=== PATIENT | male | born 1960 | race Caucasian/White ===

== ENCOUNTER → 2024-03-23 13:54 | Outpatient (BNVA) | payer MEDICAID, SELFPAY | PROVIDERS: PCP Family Medicine; Referring Provider Family Medicine; Visit Provider Student in an Organized Health Care Education/Training Program | DX: K46.9 Unspecified abdominal hernia without obstruction or gangrene (principal); K40.90 Unilateral inguinal hernia, without obstruction or gangrene, not specified as recurrent | CPT/HCPCS: 99204 ==

== ENCOUNTER → 2024-05-11 15:05 | Outpatient (BNVA) | payer MEDICARE, MEDICAID, SELFPAY | PROVIDERS: PCP Family Medicine; Visit Provider Specialist | DX: M25.512 Pain in left shoulder; G89.29 Other chronic pain; S46.002A Unspecified injury of muscle(s) and tendon(s) of the rotator cuff of left shoulder, initial encounter; V86.09XA Driver of other special all-terrain or other off-road motor vehicle injured in traffic accident, initial encounter; M54.6 Pain in thoracic spine | CPT/HCPCS: 73030; 99204 ==

== ENCOUNTER 2024-05-19 12:30 | Outpatient (CLI) | payer MEDICARE, MEDICAID, SELFPAY ==
--- NOTE | 2024-05-19 12:37 | MR_ITS ---
WS: [id number] MRI LEFT SHOULDER HISTORY: left shoulder pain COMPARISON: Radiograph 05/11/2024 TECHNIQUE: Multiplanar sequences of the shoulder joint are submitted. Micrometallic artifacts in the soft tissues surrounding the shoulder from prior surgery. Resection of the distal clavicle. No subacromial or subdeltoid bursal fluid. Normal position of the biceps tendon . No os acromion. Mild thickening with heterogeneous intermediate signal in the distal supraspinatus tendon. Fraying al jojo the bursal and articular surfaces of the tendon but no definite tear. There is no fluid gap. No m uscle atrophy or edema. Increased linear signal in the posterior labrum the remaining labral contains intermediate signal wit h intrasubstance degeneration but no additional tear MR/MR shoulder LT wo con* [id number] IMPRESSION: 1. Status post resection distal LEFT clavicle. 2. Surface fraying involving the distal supraspinatus tendon. Fraying involves both the superior and inferior articular surfaces. No tear identified. 3. Focal increased signal in the posterior labrum consistent with a short tear . The remaining labrum contains intrasubstance degeneration but no additional t ear.
== END 2024-05-19 12:31 | disposition home or self-care (01) ==
PROVIDERS: PCP Family Medicine; Visit Provider Specialist
DX: S46.002S Unspecified injury of muscle(s) and tendon(s) of the rotator cuff of left shoulder, sequela (principal); M25.512 Pain in left shoulder; G89.29 Other chronic pain; Z98.890 Other specified postprocedural states; R93.6 Abnormal findings on diagnostic imaging of limbs; Z18.10 Retained metal fragments, unspecified; X58.XXXS Exposure to other specified factors, sequela
CPT/HCPCS: 73221

== ENCOUNTER 2024-05-20 07:09 | Day surgery (SDC) | payer MEDICARE, MEDICAID, SELFPAY ==
[2024-05-20] VITALS (9 sets, daily range): BP systolic 92–149; BP diastolic 54–88; PULSE 72–94; RESP 16–18; TEMP 36.1–36.4; O2SAT 93–99
[2024-05-20] MEDS: sodium chloride 0.9% 1,000 ML 30 ML IV (07:33)
--- NOTE | 2024-05-20 07:40 | W.PM.OPSFHP ---
Same Day Surgery H&P Indication for Procedure/HPI DATE OF PROCEDURE: May 20, 2024 CHIEF COMPLAINT/INDICATIONFOR SURGICAL PROCEDURE: symptomatic right inguinal hernia PREOP DIAGNOSIS: right inguinal hernia PLANNED PROCEDURE: Operation Date: 05/20/24 08:20 Proposed Procedures p Open Inguinal Hernia Repair w/ Mesh - 97348, K40.90(Right) - Fermin Gross MD Medications/Allergies* Allergies/Adverse Reactions Allergy/AdvReac Type Severity Reaction Status Date / Time flu vaccine Allergy Mild Unknown Uncoded 05/11/24 15:25 Current Medications: Generic Name Dose Route Start Last Admin Trade Name Freq PRN Reason Stop Dose Admin Sodium Chloride 1,000 mls @ 30 mls/hr 05/20/24 07:15 05/20/24 07:33 Sodium Chloride 0.9% IV 05/21/24 07:14 30 mls/hr .Q24H MIRTHA Administration Pertinent History/Comorbid Conditions* Family History (Updated 03/23/24 @ 14:05 by KILEY Monge) Breast cancer Mother Cancer Father prostate cancer Social History Smoking and tobacco/nicotine status: current every day tobacco/nicotine user Pertinent Exam Findings alert, oriented x 3, clear to auscultation bilaterally, regular rate & rhythm, operative site marked and procedure specific exam findings Abdomen soft, nt, nd. Right inguinal hernia reducible. Recommendations Surgery/Procedure today Other Plans: Proceed with right inguinal hernia repair. Coding Level of Care Code Acute Code for Chg Fwd
--- NOTE | 2024-05-20 07:45 | ANES.PREANE2 ---
Pre-Anesthetic Assessment Height/Weight: Height 1.75 m Weight 65.317 kg Temp Pulse Resp BP Pulse Ox O2 Del Method 97 F L 93 18 149/88 98 Room Air 05/20/24 07:18 05/20/24 07:18 05/20/24 07:18 05/20/24 07:18 05/20/24 07:18 05/20/24 07:18 Preop Diagnosis: right inguinal hernia Operation Date: 05/20/24 08:20 Proposed Procedures p Open Inguinal Hernia Repair w/ Mesh - 32475, K40.90(Right) - Fermin Gross MD Familial anesthetic complications: none Was Beta Tracy taken within 24 hours: N/A Was Clonidine taken within 24 hours: N/A Last intake: Intake Last Liquid Date 05/19/24 Last Liquid Time 23:30 Last Solid Date 05/19/24 Last Solid Time 23:30 Social 55 pack years Exam alert, oriented x 3 and clear to auscultation bilaterally Airway Mallampati: Class II Dentition: other (one upper tooth is present and broken, pt states it is not loose ) History/ROS No significant history except as noted Pulmonary None reported CV/HEM None reported None reported Hepatic None reported GI None reported Metabolic None reported Musc/skel None reported Neuropsych None reported Anesthetic Plan ASA status: 2 Anesthesia: Anesthesia Evaluation and General Risk of > 500 ml blood loss (7ml/kg in children): Yes, adequate IV access and fluids planned Medications/Allergies Home Medications Medication Instructions Recorded Confirmed Last Taken Type tizanidine 4 mg tablet 4 mg PO BID PRN muscle spasticity 04/13/24 05/20/24 05/05/24 Rx #60 tabs Allergies Allergy/AdvReac Type Severity Reaction Status Date / Time flu vaccine Allergy Mild Unknown Uncoded 05/11/24 15:25 Current Medications Generic Name Dose Route Start Last Admin Trade Name Freq PRN Reason Stop Dose Admin Sodium Chloride 1,000 mls @ 30 mls/hr 05/20/24 07:15 05/20/24 07:33 Sodium Chloride 0.9% IV 05/21/24 07:14 30 mls/hr .Q24H MIRTHA Administration PFSH Anesthesia Family History Mother Breast cancer Father Cancer prostate cancer Social History Smoking and tobacco/nicotine status: current every day tobacco/nicotine user Data Anesthesia Cardiac Studies: No Data to Display
[2024-05-20] MEDS: ceFAZolin 2,000 mg SDV 2000 MG IVP (07:54)
[2024-05-20] MEDS: BUPivacaine 0.25% INJ 10 mL INJECTION (08:36)
[2024-05-20] MEDS: lidocaine-epi 1% 20 mL INJ INJECTION (08:36)
--- NOTE | 2024-05-20 09:14 | PM.OP ---
Operative Report Date of procedure: May 20, 2024 Pre-op diagnosis: symptomatic right inguinal hernia Post-op diagnosis: same Post-op findings: Indirect and direct right inguinal hernia Procedure done: Right inguinal hernia repair with mesh (plug and patch medium size) Implants: Plug and patch mesh medium size Specimens removed/disposition: Cord lipoma Pathology: Cord lipoma Surgeon: Fermin Gross MD [employer]: [id number] Anesthesia: General Estimated blood loss (mL): 5 Complications: NA Findings: Direct and indirect right inguinal hernia. Repaired using plug and patch (medium) Condition: stable Disposition: same day Brief History: 64-year-old male who presented with a symptomatic right inguinal hernia. Discussed risk and benefits of right inguinal hernia repair using mesh and patient agreed to proceed. Procedure: Patient brought to the OR and placed supine on the table. SCDs were placed and functioning. Preoperative ancef was administered. General anesthesia was induced. A ferreira catheter was placed without any complications. The right groin was prepped and draped in the usual sterile fashion. Local infiltration at the surgical site was done using lidocaine/bupivacaine with epinephrine. A 6cm incision was carried out over the right inguinal canal. Tissue dissection was carried down to the external oblique fascia using electrocautery. The fascia was incised and the cord structures were identified. Cord structures were dissected of the hernia sac. I identified a small indirect as well as a direct inguinal hernia. The hernia sacs were dissected and reduced into the abdomen. The plug was placed at the site of the deep inguinal ring and the posterior wall of the inguinal canal was reinforced using a mesh patch. The plug was fixed using 2-0 ethibond to the cojoint tendon and inguinal ligament with interrupted sutures. The mesh patch was sutured to the cojoint tendon and the inguinal ligament using interrupted sutures with 2-0 ethibond. The external oblique fascia was closed using 2-0 ethibond. Skin was closed using 4-0 monocryl and surgical glue. Ferreira was removed. The patient woke up from anesthesia and was transferred to PACU without any complications.
--- NOTE | 2024-05-20 10:50 | ANE.PACU2 ---
Inpatient post-anesthesia follow up: Airway intact: Yes Vital signs: Temperature 97.6 F Pulse Rate 72 Respiratory Rate 16 Blood Pressure 112/66 Pulse Oximetry 96 Oxygen Delivery Me thod Room Air Oxygen Flow Rate Fraction of Inspir ed Oxygen Hydration adequate: Yes Nausea and vomiting: No Pain level: 1 Mental status: Baseline
== END 2024-05-20 10:50 | disposition home or self-care (01) ==
PROVIDERS: PCP Family Medicine; Visit Provider Student in an Organized Health Care Education/Training Program
PROC: (CPT 49505; principal; 2024-05-20 08:10)
DX: K40.90 Unilateral inguinal hernia, without obstruction or gangrene, not specified as recurrent (principal); F17.200 Nicotine dependence, unspecified, uncomplicated
CPT/HCPCS: 49505; 51702; 88304; C1781; J0690; J1100; J2250; J2371; J2405; J2704; J3010; J3490; J7030

== ENCOUNTER → 2024-06-04 11:31 | Outpatient (BNVA) | payer MEDICARE, MEDICAID, SELFPAY | PROVIDERS: PCP Family Medicine; Visit Provider Student in an Organized Health Care Education/Training Program | DX: Z98.890 Other specified postprocedural states (principal) | CPT/HCPCS: 99024 ==

== ENCOUNTER → 2024-06-11 14:35 | Outpatient (BNVA) | payer MEDICARE, MEDICAID, SELFPAY | PROVIDERS: PCP Family Medicine; Visit Provider Orthopaedic Surgery | DX: M54.2 Cervicalgia (principal); M54.9 Dorsalgia, unspecified; M54.6 Pain in thoracic spine; G89.29 Other chronic pain | CPT/HCPCS: 72050; 72072; 72110; 99203 ==

== ENCOUNTER → 2024-07-23 14:02 | Outpatient (BNVA) | payer MEDICARE, MEDICAID, SELFPAY | PROVIDERS: PCP Family Medicine; Visit Provider Student in an Organized Health Care Education/Training Program | DX: K46.9 Unspecified abdominal hernia without obstruction or gangrene (principal) | CPT/HCPCS: 99214 ==

== ENCOUNTER 2024-08-07 11:03 | Outpatient (CLI) | payer MEDICARE, MEDICAID, SELFPAY ==
--- NOTE | 2024-08-07 11:14 | CT_ITS ---
WS: [id number] CT ABDOMEN AND PELVIS WITH CONTRAST HISTORY: HERNIA TECHNIQUE: Imaging performed of the abdomen and pelvis with IV contrast. Single phase imaging of the abdomen. Coronal and sagittal reformats are submitted. All CT scans at [facility] use at least one of these dose optimization techniques: automated exposure control; mA and/or kV adjustment per patient size (includes targeted exams where dose is matched to clinical indication); or iterative reconstruction. IV CONTRAST: Omnipaque 350; 100 mL IV. Oral contrast: No DLP: 298.63 mGy.cm COMPARISON: None Lower thorax: Lung bases are clear. Heart is normal size. No hiatal hernia. Liver/biliary system: Normal size with no intrahepatic dilatation. Gallbladder: Normal. No gallstones or wall thickening. No pericholecystic fluid. Pancreas: Normal size pancreas and pancreatic duct. No adjacent inflammation. Spleen: Normal size spleen. No mass or infarct. Adrenal glands: Normal. Right kidney: Normal size kidney with no obstruction. Anterior cyst upper pole measures 3.7 x 4.0 cm. There are additional scattered cortical hypodensities which are too small to characterize. Left kidney: Normal size kidney with cortical hypodensities. Some of these are too small to characterize. No obstruction. Aorta: Mild atherosclerosis with no aneurysm. Mesenteric arteries are intact. Lymphadenopathy: None. Free fluid: None. GI tract: Fluid distended stomach. No small bowel obstruction. There is a small amount of increased fluid within several of the small bowel loops but these are not significantly dilated. Moderate diffuse constipation. Tortuous overlapping loops of sigmoid colon. Moderate diverticular disease without acute diverticulitis. Normal appendix. Abdominal wall: Ventral abdominal wall is intact. Pelvis: RIGHT inguinal hernia is evident. There is a loop of small bowel extending through a defect within the hernia. There is no dilatation of the more proximal small bowel. There is a very tight opening in which the small bowel extends through. Mild prostate heterogeneity. No free fluid in the pelvis. Bones: Unremarkable. CT/CT abdomen pelvis w con* [id number] IMPRESSION: 1. RIGHT inguinal hernia containing a loop of nondilated small bowel. 2. Mild fluid distention of several small bowel loops but not significant for obstruction. The proximal small bowel loops at the RIGHT inguinal hernia are no t dilated. 3. Diffuse constipation with sigmoid diverticulosis. No acute diverticulitis. 4. Bilateral renal cysts. 5. Atherosclerosis aorta.
[2024-08-07] MEDS: iohexol 350 mg/mL 500 mL Btl (per mL) IV (11:27)
[2024-08-07 11:36] LABS: Blood Urea Nitrogen 11 mg/dL (8-23); Glomerular Filtration Rate 113.2 mL/min (90-130)
== END 2024-08-07 11:04 | disposition home or self-care (01) ==
PROVIDERS: PCP Family Medicine; Visit Provider Student in an Organized Health Care Education/Training Program
DX: K40.90 Unilateral inguinal hernia, without obstruction or gangrene, not specified as recurrent (principal); R93.5 Abnormal findings on diagnostic imaging of other abdominal regions, including retroperitoneum; K59.00 Constipation, unspecified; K57.30 Diverticulosis of large intestine without perforation or abscess without bleeding; N28.1 Cyst of kidney, acquired; I70.0 Atherosclerosis of aorta; N42.9 Disorder of prostate, unspecified
CPT/HCPCS: 74177; 82565; 84520

== ENCOUNTER → 2024-10-01 14:56 | Outpatient (BNVA) | payer MEDICARE, MEDICAID, SELFPAY | PROVIDERS: PCP Family Medicine; Visit Provider Student in an Organized Health Care Education/Training Program | DX: Z09 Encounter for follow-up examination after completed treatment for conditions other than malignant neoplasm (principal); G89.29 Other chronic pain | CPT/HCPCS: 99214 ==

== ENCOUNTER → 2025-03-22 13:02 | Outpatient (BNVA) | payer MEDICARE, MEDICAID, SELFPAY | PROVIDERS: PCP Family Medicine; Visit Provider Student in an Organized Health Care Education/Training Program | DX: K40.91 Unilateral inguinal hernia, without obstruction or gangrene, recurrent (principal) | CPT/HCPCS: 99213 ==